=== PATIENT | male | born 1965 ===

== ENCOUNTER → 2017-04-22 | Outpatient (CLI) | payer BC ==
[2017-04-22 14:16] LABS: BASOPHILS ABSOLUTE AUTO 0.07 K/mm3 (0.00-0.23); BASOPHILS PERCENT AUTO 1 % (0-2); EOSINOPHILS ABSOLUTE AUTO 0.02 K/mm3 (0.00-0.68); EOSINOPHILS PERCENT AUTO 0 % (0-6); Hematocrit 48.9 % (37.0-53.0); Hemoglobin 17.7 g/dL (13.5-17.5); Mean Corpuscular HGB 30.5 pg (26.0-34.0); Mean Corpuscular HGB Conc 36.2 g/dL (31.5-36.5); Mean Corpuscular Volume 84 fL (80-100); Platelet Count 366 K/mm3 (150-400); RDW Coefficient Variation 12.2 % (11.7-14.2); RDW Standard Deviation 36.7 fL (35.1-46.3); White Blood Cell Count 12.18 K/mm3 (4.00-11.30)
[2017-04-22 14:28] LABS: Alanine Aminotransfer (ALT/SGP 45 U/L (12-78); Albumin, Blood 4.4 g/dL (3.4-5.0); Albumin/Globulin Ratio 1.3 (0.8-1.8); Alk Phos 71 U/L (40-126); Amylase, Blood 54 U/L (25-115); Anion Gap 8 mmol/L (6-16); Aspartate Aminotrans (AST/SGOT 15 U/L (12-37); Bilirubin, Total 0.9 mg/dL (0.1-1.0); Blood Urea Nitrogen 10 mg/dL (8-24); Bun/Creatinine Ratio 9.4 (12.0-20.0); CO2, Blood 30 mmol/L (21-32); Calcium, Blood 9.2 mg/dL (8.5-10.1); Chloride, Blood 102 mmol/L (98-108); Creatinine, Blood 1.06 mg/dL (0.60-1.20); Globulin, Blood 3.4 g/dL (2.2-4.0); Glomerular Filtration Rate >60 (60-); Glucose, Blood 106 mg/dL (70-99); Potassium, Blood 3.9 mmol/L (3.5-5.5); Sodium, Blood 140 mmol/L (136-145); Total Protein, Blood 7.8 g/dL (6.4-8.2)
[2017-04-22 14:32] LABS: IMMATURE GRAN ABSOLUTE AUTO 0.05 K/mm3 (0.00-0.10); IMMATURE GRAN PERCENT AUTO 0 % (0-1); LYMPHOCYTES ABSOLUTE AUTO 1.69 K/mm3 (0.84-5.20); LYMPHOCYTES PERCENT AUTO 14 % (21-46); MONOCYTES ABSOLUTE AUTO 1.04 K/mm3 (0.16-1.47); MONOCYTES PERCENT AUTO 9 % (4-13); NEUTROPHILS ABSOLUTE AUTO 9.31 K/mm3 (1.96-9.15); NEUTROPHILS PERCENT AUTO 76 % (41-73)
== END | disposition home or self-care (01) ==
LOC: LAB EV 14:10
PROVIDERS: General Practice
DX: R10.9 Unspecified abdominal pain (principal)
CPT/HCPCS: 80053; 82150; 83690; 85025

== ENCOUNTER → 2018-06-20 | Outpatient (CLI) | payer BC | LOC: LAB 17:59 → LAB SHORT 17:59 | DX: L02.02 Furuncle of face (principal); L57.0 Actinic keratosis; D48.5 Neoplasm of uncertain behavior of skin; B35.3 Tinea pedis; B07.0 Plantar wart; L53.8 Other specified erythematous conditions; R20.8 Other disturbances of skin sensation | CPT/HCPCS: 87070; 87077; 87186; 87205 ==

== ENCOUNTER → 2021-03-15 | Outpatient (CLI) | payer BC ==
[2021-03-15 16:01] LABS: BASOPHILS ABSOLUTE AUTO 0.04 K/mm3 (0.00-0.23); BASOPHILS PERCENT AUTO 0 % (0-2); EOSINOPHILS ABSOLUTE AUTO 0.16 K/mm3 (0.00-0.68); EOSINOPHILS PERCENT AUTO 1 % (0-6); Hematocrit 47.7 % (37.0-53.0); Hemoglobin 17.2 g/dL (13.5-17.5); IMMATURE GRAN ABSOLUTE AUTO 0.14 K/mm3 (0.00-0.10); IMMATURE GRAN PERCENT AUTO 1 % (0-1); LYMPHOCYTES ABSOLUTE AUTO 0.89 K/mm3 (0.84-5.20); LYMPHOCYTES PERCENT AUTO 8 % (21-46); MONOCYTES ABSOLUTE AUTO 1.96 K/mm3 (0.16-1.47); MONOCYTES PERCENT AUTO 17 % (4-13); Mean Corpuscular HGB 30.6 pg (26.0-34.0); Mean Corpuscular HGB Conc 36.1 g/dL (31.5-36.5); Mean Corpuscular Volume 85 fL (80-100); Mean Platelet Volume 9.7 fL (9.1-12.4); NEUTROPHILS ABSOLUTE AUTO 8.28 K/mm3 (1.96-9.15); NEUTROPHILS PERCENT AUTO 72 % (41-73); Platelet Count 432 K/mm3 (150-400); RDW Standard Deviation 37.1 fL (35.1-46.3); Red Blood Cell Count 5.63 M/mm3 (4.30-5.90); White Blood Cell Count 11.47 K/mm3 (4.00-11.30)
[2021-03-15 16:09] LABS: Alanine Aminotransfer (ALT/SGP 246 U/L (12-78); Albumin, Blood 3.2 g/dL (3.4-5.0); Albumin/Globulin Ratio 0.9 (0.8-1.8); Alk Phos 81 U/L (40-126); Anion Gap 14 mmol/L (6-16); Aspartate Aminotrans (AST/SGOT 70 U/L (12-37); Blood Urea Nitrogen 12 mg/dL (8-24); Bun/Creatinine Ratio 12.8 (12.0-20.0); CO2, Blood 25 mmol/L (21-32); Chloride, Blood 96 mmol/L (98-108); Creatinine, Blood 0.94 mg/dL (0.60-1.20); Globulin, Blood 3.6 g/dL (2.2-4.0); Glomerular Filtration Rate >60 (60-); Glucose, Blood 101 mg/dL (70-99); Potassium, Blood 4.3 mmol/L (3.5-5.5); Sodium, Blood 135 mmol/L (136-145); Total Protein, Blood 6.8 g/dL (6.4-8.2)
== END | disposition home or self-care (01) ==
LOC: LAB SHORT 15:52
PROVIDERS: Physician Assistant
DX: U07.1 COVID-19 (principal)
CPT/HCPCS: 80053; 85025

== ENCOUNTER 2023-10-20 09:26 | Observation (INO) | payer BC ==
[~2023-10-20] VITALS: Ht 175.3 cm; Wt 97.5 kg
[2023-10-20] VITALS (12 sets, daily range): BP systolic 127–152; BP diastolic 78–104
[2023-10-20 10:51] LABS: BASOPHILS ABSOLUTE AUTO 0.05 K/mm3 (0.00-0.23); BASOPHILS PERCENT AUTO 0 % (0-2); EOSINOPHILS ABSOLUTE AUTO 0.11 K/mm3 (0.00-0.68); EOSINOPHILS PERCENT AUTO 1 % (0-6); Hemoglobin 19.3 g/dL (13.5-17.5); IMMATURE GRAN ABSOLUTE AUTO 0.14 K/mm3 (0.00-0.10); IMMATURE GRAN PERCENT AUTO 1 % (0-1); LYMPHOCYTES ABSOLUTE AUTO 0.63 K/mm3 (0.84-5.20); LYMPHOCYTES PERCENT AUTO 3 % (21-46); MONOCYTES ABSOLUTE AUTO 0.68 K/mm3 (0.16-1.47); MONOCYTES PERCENT AUTO 3 % (4-13); Mean Corpuscular HGB 30.5 pg (26.0-34.0); Mean Corpuscular Volume 87 fL (80-100); Mean Platelet Volume 9.4 fL (9.1-12.4); NEUTROPHILS ABSOLUTE AUTO 19.57 K/mm3 (1.96-9.15); NEUTROPHILS PERCENT AUTO 92 % (41-73); Platelet Count 358 K/mm3 (150-400); RDW Coefficient Variation 12.6 % (11.7-14.2); RDW Standard Deviation 39.5 fL (35.1-46.3); Red Blood Cell Count 6.32 M/mm3 (4.30-5.90); White Blood Cell Count 21.18 K/mm3 (4.00-11.30)
[2023-10-20 10:52] LABS: Hematocrit 55.1 % (37.0-53.0)
[2023-10-20 11:10] LABS: Albumin, Blood 4.4 g/dL (3.4-5.0); Albumin/Globulin Ratio 1.2 (0.8-1.8); Bun/Creatinine Ratio 17.9 (12.0-20.0); Calcium, Blood 9.6 mg/dL (8.5-10.1); Creatinine, Blood 0.89 mg/dL (0.60-1.20); Globulin, Blood 3.7 g/dL (2.2-4.0); Potassium, Blood 4.2 mmol/L (3.5-5.5); Total Protein, Blood 8.1 g/dL (6.4-8.2)
[2023-10-20] MEDS ORDERED: Ondansetron HCl 2 MG / ML 2ML Vial IV ONE (12:45)
[2023-10-20] MEDS ORDERED: HYDROmorphone HCl/Pf 1MG SYR IV ONE (12:45)
[2023-10-20] MEDS ORDERED: Piperacillin/Tazobactam Sod 4.5 GM in NS 100 ML IV ONE (12:45)
[2023-10-20] MEDS ORDERED: NS 1,000 ML IV SCH (12:50)
[2023-10-20] MEDS ORDERED: Lactated Ringer's 1,000 ML IV SCH ×2 (13:15→16:05)
[2023-10-20] MEDS ORDERED: FentaNYL Citrate 50 MCG/ML 2 ML Injection ONE ×2 (13:24→14:29)
[2023-10-20] MEDS ORDERED: propofoL 40 ML IV ONE (13:24)
--- NOTE | 2023-10-20 13:35 | NUR ---
PT TO DAY SURGERY WITH 20G IV TO RIGHT AC
[2023-10-20] MEDS ORDERED: Synthroid200 MCG PO (13:37)
[2023-10-20] MEDS ORDERED: TESTOSTERONE100 GM (13:40)
[2023-10-20] MEDS ORDERED: Rocuronium Bromide 10 MG/ML 5ML Injection IV ONE ×2 (13:41→14:32)
[2023-10-20] MEDS ORDERED: Metoclopramide HCl 5MG / ML 2ML Vial IV ONE (13:45)
[2023-10-20] MEDS ORDERED: Scopolamine Hydrobromide Patch TOP ONE (13:45)
[2023-10-20] MEDS ORDERED: Ketorolac Tromethamine 30mg Vial ONE (13:51)
[2023-10-20] MEDS ORDERED: Dexamethasone Sod Phos 10 MG/ML 1ML VIAL ONE (13:52)
[2023-10-20] MEDS ORDERED: Sugammadex Sodium 200 MG/2ML SDV (100 MG/ML) ONE (13:52)
[2023-10-20] MEDS ORDERED: Ondansetron HCl 2 MG / ML 2ML Vial ONE (13:52)
[2023-10-20] MEDS ORDERED: Bupivacaine 0.5% HCl 5 MG/ML 30MLVIAL ONE (14:09)
[2023-10-20] MEDS ORDERED: HYDROmorphone HCl/Pf 1MG SYR IV PRN ×2 (14:30→14:35)
[2023-10-20] MEDS ORDERED: FentaNYL Citrate 50 MCG/ML 2 ML Injection IV PRN ×3 (14:30→16:00)
[2023-10-20] MEDS ORDERED: Prochlorperazine Edisylate 10 mg Vial IV PRN (14:30)
[2023-10-20] MEDS ORDERED: HYDROcodone 5-APAP 325 TAB PO PRN (16:00)
[2023-10-20] MEDS ORDERED: Ondansetron 4 MG TAB PO PRN (16:00)
[2023-10-20] MEDS ORDERED: Ondansetron HCl 2 MG / ML 2ML Vial IV PRN (16:00)
[2023-10-20] MEDS ORDERED: Ketorolac Tromethamine 30mg Vial IV PRN (16:10)
[2023-10-20] MEDS ORDERED: HYDR1TAB94 PO (17:08)
--- NOTE | 2023-10-20 17:20 | NUR ---
POST OP PT ARRIVAL TO UNIT S/P LAP LARISSA. AWAKE AND ALERT. ABLE TO TRANSFER SELF FROM GURNEY TO BED. REPORTS MINIMAL DISCOMFORT TO ABD AND DECLINES NEED FOR PAIN MEDS. X4 LAP SITES TO ABD WITH STERI STRIPS ARE CDI. SLOWLY HECTOR REG DIET. POST OP VSS AND IN PROGRESS. ORIENTED TO ROOM AND CALL LIGHT.
--- NOTE | 2023-10-20 18:34 | NUR ---
DISCHARGE PT EDUCATED ON AND RECEIVED PRINTED DC INSTRUCTIONS AND VERB AN UNDERSTANDING. IV DC'D. HARD RX FOR NORCO GIVEN TO PT. HECTOR DIET, INDEP IN ROOM, DECLINES PAIN MEDS, AND VOIDING WITHOUT DIFFICULTY. PT GATHERING PERSONAL BELONGINGS AND WAITING FOR RIDE HOME.
[2023-10-21] MEDS ORDERED: Levothyroxine Sodium 0.1 MG Tab PO SCH (06:00)
== END 2023-10-20 18:57 | disposition home or self-care (01) ==
LOC: ER 09:26 → SURS 15:57
PROVIDERS: Physician Assistant; ADMIT Surgery
PROC: 0FT44ZZ Resection of Gallbladder, Percutaneous Endoscopic Approach (ICD-10-PCS; principal; 2023-10-20 11:00)
PROC: BF03YZZ Plain Radiography of Gallbladder and Bile Ducts using Other Contrast (ICD-10-PCS; principal; 2023-10-20 11:00)
DX: K80.12 Calculus of gallbladder with acute and chronic cholecystitis without obstruction (principal); E03.9 Hypothyroidism, unspecified; Z79.890 Hormone replacement therapy; Z88.0 Allergy status to penicillin
CPT/HCPCS: 74300; 76705; 80053; 83690; 85025; 88304; 96365-59; 96375-59; 99285-25; A9270; C1729; J1100; J1170; J1885; J2405; J2543; J2704; J2765; J3010; J7030; J7120